=== PATIENT | female | born 2000 | race Caucasian/White ===

== ENCOUNTER → 2023-08-16 10:15 | Outpatient (BNV) | payer BC, SELFPAY | PROVIDERS: Visit Provider Psychiatry & Neurology Psychiatry | DX: F31.32 Bipolar disorder, current episode depressed, moderate (principal); F41.1 Generalized anxiety disorder | CPT/HCPCS: 90792; 99213 ==

== ENCOUNTER 2023-08-17 10:15 | Outpatient (RCR) | payer BC, SELFPAY ==
[2023-08-03 11:55] VITALS: BP 102/74; PULSE 60; TEMP 37.2
[2023-08-03 11:56] VITALS: BMI 34.2
--- NOTE | 2023-08-03 12:52 | PC.ADMIT ---
Patient is a 23 year old female who is in her senior year at [employer] who holds a dx of Bipolar disorder. She was referred to [facility] by [facility] where she was admitted d/t increased depression and s/p overdose on 1/2 bottle of Seroquel and drove to the hospital right after for help. Patient reportedly stopped taking her medication for a few days prior and felt hypomanic and took the overdose. Patient was not medically admitted. Per medical records toxicology screen positive for benzodiazapines however patient denied use. Patient reports using Marijuana a few times a week. Does not think this is an issue for her at this time. She is taking a medical leave from school to work on her mental health. Patient is alert and oriented x4. Calm and cooperative. Presented with anxious mood and affect. Denied, SI, AH, VH, or paranoid thoughts. Reports feeling guilty regarding overdose attempt. Medications reconciled with patient, [facility] discharge paperwork, and pharmacy. Patient stated her outside prescriber Carey Baum made some medication changes since her inpatient admission including stopping Atomoxetine and is no longer taking Abilify. She is not taking Zoloft. Reports she will run out of Lamotrigine tomorrow, will reviewed with Dr. Valiente.
--- NOTE | 2023-08-04 16:13 | HO.PHP ---
Client's case has been opened and reviewed in treatment team.
--- NOTE | 2023-08-04 17:39 | P.HPPSP_ITS ---
HPI Date of Service: 08/04/23 Chief Complaint: MDD Sources of Information: patient interviewed, chart reviewed and crisis/core team assessment reviewed HPI Narrative: Patient is a 23 year old female with history of Bipolar Disorder, depression, anxiety who is being stepped down following her first inpatient hospitalization to [facility] after self-presenting to ED status post suicide attempt. She is Senior at [employer] but is currently on medical leave for the academic year since being hospitalized. Prior to hospitalization she reports things in her life were going well socially and academically, however she had been struggling with her mood and was feeling frustrated that her medication didn't seem to be working so she suddenly stopped all her medications last month. Her mood reportedly deteriorated over the course of the week, with worsening suicidal thoughts, when she impulsively overdosed on a half bottle of Seroquel which she immediately regretted and drove herself to the ED. She reports her mood is much better since being hospitalized. Still notes some residual depression, mild anhedonia, more numbness than sadness, however she denies any hopelessness or SI. Energy low, appetite and sleep normal. She was started on Zoloft which she feels she is just starting to feel the effects of . She was previously on Abilify, Strattera, Seroquel, Lamictal, but was discontinued from ABilify during inpatient stay, and was discharged on the same doses of Lamcital, Seroquel and Strattera with the addition of Zoloft 50 mg. She reports her outpatient provider has since discontinued the Strattera 3 weeks ago. 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 (Denies previous rx Effexor, PAxil, GBT, Latuda) [facility] Medical History (Updated 08/05/23 @ 06:01 by Vee Valiente MD) No known health problems Narrative: h/o b/l wrist fractures (from snowboarding) in 2019 other sports-related injuries, denies concussions or TBI denies hx of seizures s/p tonsillectomy at age 6 Nulligravid G0 LMP: a month ago, +sexually active, uses protection, not on OCP Ht: 5'4 Wt: 195 lbs Surgical History (Updated 08/03/23 @ 11:53 by Elba Hwang RN) Hx of tonsillectomy Family History: both siblings with anxiety, mother with anxiety, aunt and cousins with bipolar disorder. Denies FH of addiction or suicides Social History: Lives in [place], rents room with 2 roommates. stable situation. Had been living with ex-partner which may have contributed to stressors. She is in her 4th year of U[employer] studies at [employer], majoring in Biology. She has taken a medical leave of absence for this academic year. Currently employed at [employer] in [place]. She is from [place], [place]. At home are her parents, grandmother, 2 siblings (older brother by a year, younger sister by 7 years) Substance History: Alcohol use about 1x/month since age 16. Denies any related problems or blackouts Cannabis use: uses marijuana about 2x/wk since age 16 Caffeine use: 1-2 energy drinks/day No other substance use hx Trauma History: Denies any hx of physical, sexual or emotional abuse or neglect, traumatic losses or events Diagnostics Vital Signs (24Hr): BMI result Body Mass Index 34.2 Meds/Allergies Meds Home Medications Medication Instructions Recorded Confirmed Type quetiapine 50 mg tablet 50 mg PO BEDTIME 08/03/23 08/03/23 History sertraline 50 mg tablet 50 mg PO DAILY 08/03/23 08/03/23 History Allergies Allergies Allergy/AdvReac Type Severity Reaction Status Date / Time No Known Allergies Allergy Verified 08/03/23 11:54 Mental Status Exam Mental Status Exam Narrative: Alert, oriented, in no acute distress. Casually dressed. Groomed. Normal gait, no tics/tremors/dyskinesia, no psychomotor agitation or neurovegetative retardation. Calm, cooperative, forthcoming. Eye contact. Mood is depressed. Affect constricted, anxious. Speech is normal rate, low volume, low prosody. No latency or pressured speech. Thought process is linear, coherent without illogicality or FOI/BABAR. Thought content relevant to stressors. No thoughts of harming self or others. No gross evidence of psychosis. Cognition grossly intact. Sensorium clear. Insight fair/good. Judgment fair but adequate. Assessment & Plan Assessment & Plan (1) Bipolar affective disorder, depressed, moderate: Status: Acute Code(s): F31.32 - Bipolar disorder, current episode depressed, moderate (2) Generalized anxiety disorder: Status: Acute Code(s): F41.1 - Generalized anxiety disorder Plan Admit to PHP continue with regular medications (may consider incr AD vs AED, for depression vs mood instability, respectively) continue to monitor as per protocol Patient educated on: diagnosis, medication risk/benefits and substance abuse Informed Consent: understands Reason for continued partial hosp. stay Substantial Risk for: inability to function, rapid decompensation and med/psych decompensation Certification I certify that partial hospital treatment is medically necessary due to the symptoms and problems resulting from the patient's mental illness and the failure to treat the patient at the partial hospital level of care would likely result in the patient requiring inpatient psychiatric care which could not be prevented at a less intensive level of care. Time Spent With Patient Time: Total time managing care of this patient today __60__ minutes.
--- NOTE | 2023-08-16 21:06 | P.PNPSP_ITS ---
Subjective Subjective Date of Service: 08/16/23 Reason For Visit: MDD Interim History: Patient reports that her time here was very helpful . She has continued to work part-time while in the program. 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 She reports her mood is good . Denies any depressive symptoms, says her moods are more level, no hopelessness or SI. There hasn't been any episodes of passive SI in over a week. He meets with his outpatient provider monthly, was last seen by provider 2 weeks ago. She reportedly is not needing any refills until then. Her next therapy appointment is next Tuesday. Medication Compliance: Yes Side effects from medications: No Attending Groups: Yes Review of Systems Acute medical concerns: No Mental Status Exam Mental Status Exam Narrative: Alert, oriented, in no acute distress. Casually dressed, facial piercings. Calm, cooperative, forthcoming. Eye contact maintained. Mood euthymic, affect appropriate. Normal speech. No evidence of thought disorder. Goal-directed. Future-oriented. No SI or HI on inquiry. No evidence of jairo or psychosis. Cognition grossly intact. Sensorium clear. Insight and judgment intact. Diagnostics Vital Signs (24Hr): BMI result Body Mass Index 34.2 Assessment & Plan Assessment & Plan (1) Bipolar affective disorder, depressed, moderate: Status: Acute Code(s): F31.32 - Bipolar disorder, current episode depressed, moderate (2) Generalized anxiety disorder: Status: Acute Code(s): F41.1 - Generalized anxiety disorder Plan [facility]charge from [facility] continue on current treatment regime defer further medication management to outpatient provider Patient educated on: diagnosis and medication risk/benefits Informed Consent: understands Reason for contiued partial hosp. stay Substantial Risk for: stable for discharge Certification I certify that partial hospital treatment is medically necessary due to the symptoms and problems resulting from the patient's mental illness and the failure to treat the patient at the partial hospital level of care would likely result in the patient requiring inpatient psychiatric care which could not be prevented at a less intensive level of care. Total time managing care of this patient today __30__ minutes. Discharge Plan Discharge Attending provider: Vee Valiente Medications: Continued sertraline 50 mg Tablet 50 mg PO DAILY quetiapine 50 mg tablet 50 mg PO BEDTIME lamotrigine 200 mg tablet 200 mg PO DAILY Qty: 20 0RF Stand Alone Forms: Patient Portal Discharge page Patient Education: Bipolar Disorder (DC) Telehealth Telehealth Location of provider rendering services: other (private office) Location of patient: other (PHP) Patient Identification confirmed using: Name, : Yes Telehealth method: video Minutes spent on Phone/Video with Pt.: 30
== END 2023-08-17 23:59 | disposition home or self-care (01) ==
LOC: HO.PHPA 10:15
PROVIDERS: Visit Provider Psychiatry & Neurology Psychiatry
DX: F31.32 Bipolar disorder, current episode depressed, moderate (principal); F41.1 Generalized anxiety disorder; Z79.899 Other long term (current) drug therapy
CPT/HCPCS: 90791; 90853